=== PATIENT | male | born 1975 | race Caucasian/White ===

== ENCOUNTER 2021-02-15 19:32 | Emergency (ER) | payer OTHER ==
[~2021-02-15] VITALS: Ht 175.3 cm; Wt 97.7 kg
[2021-02-15 20:24] LABS: COVID AG,FIA SOURCE NASOPHARYNGEAL
[2021-02-15 22:20] VITALS: BP 115/68
== END 2021-02-15 22:38 | disposition home or self-care (01) ==
LOC: EMS 19:36
DX: U07.1 COVID-19 (principal); F17.210 Nicotine dependence, cigarettes, uncomplicated
CPT/HCPCS: 99283